=== PATIENT | male | born 1965 | race Caucasian/White ===

== ENCOUNTER 2016-07-29 13:49 | Emergency (ER) | payer MEDICARE, OTHER ==
[2016-07-29] MEDS ORDERED: NALBUPHINE HCL 10 MG/1 ML IM ONE (13:56)
[2016-07-29] MEDS ORDERED: KETOROLAC TROMETHAMINE 60 MG/2 ML VIAL IM ONE (13:56)
[2016-07-29] MEDS ORDERED: KETOROLAC TROMETHAMINE 60 MG/2 ML VIAL ONE (13:56)
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
[2016-07-29 14:51] VITALS: BP 110/57
--- NOTE | 2016-07-29 18:54 | Diagnostic Imaging Report ---
[facility] [id number] [facility] [address] [address] Report Submission Date: Jul 29, 2016 2:20:45 PM PROTOCOL OFFICER Patient Study Name: KINGS CALDERÓN Date: Jul 29, 2016 2:02:17 PM PROTOCOL OFFICER Modality Type: CT\SR Gender: M Description: CT T-SPINE W/O CONTRAS : 67 Institution: [facility] Physician ENRIQUE SIM (RENTAL CLERK) - ER CT of the thoracic spine CLINICAL HISTORY: Fall backwards off a chair. Back pain. TECHNIQUE: CT of the thoracic spine is performed in contiguous axial slices with sagittal and coronal reconstructions. FINDINGS: The alignment of the vertebrae is anatomic. There are small anterior extradural defects at multiple levels. There is no evident fracture. The diameter of bony spinal canal is within normal limits. IMPRESSION: Mild spondylosis. No fracture. Electronically signed on Jul 29, 2016 2:20:45 PM PROTOCOL OFFICER by: Prince SMITH
== END 2016-07-29 14:50 | disposition home or self-care (01) ==
LOC: ED 13:49
DX: M54.6 Pain in thoracic spine (principal); W19.XXXA Unspecified fall, initial encounter; Y93.9 Activity, unspecified; Y99.9 Unspecified external cause status
CPT/HCPCS: 72128; J1885; J2300; 96372; 99283